=== PATIENT | female | born 1960 | race Caucasian/White ===

== ENCOUNTER 2019-03-29 08:52 | Inpatient (IN) | payer BC ==
[2019-03-29 08:57] LABS: O2 DELIVERY DEVICE ROOM AIR
[2019-03-29 09:10] LABS: BICARBONATE,ARTERIAL 23.7 mm/L (22.0-26.0); O2 SATURATION ARTERIAL 91 % (95-98); PCO2 ARTERIAL 23 mm/Hg0 (35-45); PO2 ARTERIAL 47 mm/Hg (80-100)
[2019-03-29] MEDS ORDERED: Albuterol/Ipratropium 3.0-0.5 MG/3 ML Neb Soln INH ONE (09:15)
[2019-03-29 09:17] LABS: CHLORIDE,CL 98 mEq/L (98-106); SODIUM,NA 135 mEq/L (136-145)
[2019-03-29] MEDS ORDERED: Albuterol/Ipratropium 3.0-0.5 MG/3 ML Neb Soln ONE (09:18)
[2019-03-29] MEDS ORDERED: Sodium Chloride 0.9% 10 ML Syringe FLUSH PRN (10:03)
[2019-03-29] MEDS ORDERED: Acetaminophen 325 MG Tab PO PRN (10:03)
[2019-03-29] MEDS ORDERED: Potassium Chloride Riders 40 MEQ in Premix Bag 1 BAG IV ONE (10:09)
[2019-03-29] MEDS ORDERED: Budesonide 0.5 MG/2 ML Neb Susp NEB PRN (10:10)
[2019-03-29] MEDS ORDERED: Non-Formulary Medication 1 Each (Losartan/Hydrochlorothiazide [Hyzaar 100-12.5 Tablet] 1 E PO SCH (10:15)
[2019-03-29] MEDS ORDERED: Non-Formulary Medication 1 Each (Budesonide/Formoterol [Symbicort 80-4.5 Mcg] 2 PUFF) PO SCH (10:15)
[2019-03-29] MEDS: amLODIPine 2.5 MG Tab PO SCH ×2 (10:55→11:11)
[2019-03-29] MEDS: Losartan 100 MG Tab PO SCH ×2 (10:56→11:10)
[2019-03-29] MEDS: Hydrochlorothiazide 12.5 MG Cap PO SCH ×2 (10:56→11:10)
[2019-03-29] MEDS: Oseltamivir 75 MG Cap PO SCH ×2 (10:56→19:43)
[2019-03-29] MEDS: methylPREDNISolone Sodium Succinate 125 MG/2 ML SDV IVPUSH SCH ×2 (10:57→23:49)
[2019-03-29] MEDS: Citalopram 10 MG Tab PO SCH (10:59)
[2019-03-29] MEDS: Pantoprazole 40 MG Vial IVPUSH SCH ×2 (11:01→23:49)
[2019-03-29] MEDS: Formoterol/Mometasone 100-5 MCG 8.8 GM Inhaler IH SCH ×2 (11:02→19:43)
[2019-03-29] MEDS: Enoxaparin 40 MG/0.4 ML Syringe SUBCUT SCH (11:10)
[2019-03-29] MEDS: Albuterol/Ipratropium 3.0-0.5 MG/3 ML Neb Soln NEB SCH ×3 (11:13→19:43)
[2019-03-29] MEDS ORDERED: Lidocaine 1% 20 ML MDV ONE (12:51)
[2019-03-29] MEDS ORDERED: Lidocaine 1% 30 ML SDV INJECT SCH (15:45)
[2019-03-29] MEDS ORDERED: Montelukast 10 MG Tab PO SCH (20:00)
[2019-03-30 07:23] LABS: CHLORIDE,CL 102 mEq/L (98-106); SODIUM,NA 139 mEq/L (136-145)
[2019-03-30] MEDS: Citalopram 10 MG Tab PO SCH (08:29)
[2019-03-30] MEDS: Albuterol/Ipratropium 3.0-0.5 MG/3 ML Neb Soln NEB SCH ×2 (08:29→12:48)
[2019-03-30] MEDS: Hydrochlorothiazide 12.5 MG Cap PO SCH (08:30)
[2019-03-30] MEDS: amLODIPine 2.5 MG Tab PO SCH (08:30)
[2019-03-30] MEDS: Oseltamivir 75 MG Cap PO SCH (08:30)
[2019-03-30] MEDS: Losartan 100 MG Tab PO SCH (08:30)
[2019-03-30] MEDS: Formoterol/Mometasone 100-5 MCG 8.8 GM Inhaler IH SCH (08:33)
[2019-03-30] MEDS: Pantoprazole 40 MG Vial IVPUSH SCH (10:03)
[2019-03-30] MEDS: methylPREDNISolone Sodium Succinate 125 MG/2 ML SDV IVPUSH SCH (10:03)
[2019-03-30] MEDS: Enoxaparin 40 MG/0.4 ML Syringe SUBCUT SCH (10:04)
[2019-03-30 12:58] VITALS: BP 155/66; PULSE 90
--- NOTE | 2019-03-30 14:34 | PCM.DCSUM1 ---
Discharge Summary - Hospital Course Free Text/Narrative:: Rose Marie is a 58 year old who presented to clinic in follow up for persisting cough, malaise and shortness of breath. Was seen earlier in the week, started on a tapering dose of prednisone and nebs. [place] like unable to get in air "windpipe feels like a straw". Has history of asthma as well. Did not feel nebs were helping and "felt panicky". On presentation to clinic, oxygen sat 91 % on room air. Influenza A positive. Potassium low at 2.3, magnesium 1.4. CRP 1.9, WBC 10.3. ADmitted and started on Tamiflu. Replacement of potassium and magnesium. Start IV fluids and steroids. Diagnosis: Stroke: No Modified Marleni Scale: No Symptoms at All Modified Hondo Scale Score: 0 - Discharge Data Discharge Date: 03/30/19 Discharge Disposition: Home, Self-Care 01 Condition: Fair - Referral to Home Health Primary Care Physician: Kaylene Cano PA-C - Discharge Diagnosis/Problem(s) (1) Influenza A SNOMED Code(s): 303104151 ICD Code: J10.1 - FLU DUE TO OTH IDENT INFLUENZA VIRUS W OTH RESP MANIFEST Status: Acute Priority: High (2) Asthma exacerbation SNOMED Code(s): 202513980 ICD Code: J45.901 - UNSPECIFIED ASTHMA WITH (ACUTE) EXACERBATION Status: Acute Priority: High Qualifiers: Asthma severity: mild Asthma persistence: persistent Qualified Code(s): J45.31 - Mild persistent asthma with (acute) exacerbation - Patient Summary/Data Complications: none Hospital Course: Patient doing well today. Does still feel short of breath and has hacky cough but improved from yesterday. Admits that finally got a night of sleep last night and has overall malaise. Sats are stable at 93% on room air. Remains afebrile. Potassium improved to 3.3 today. Magnesium now 2.2. Is ambulating and tolerating well today. Eating well. Will discharge home on tamiflu. Prednisone 40 mg daily for 5 days. Follow up with Kaylene in one week. - Patient Instructions Diet: Usual Diet as Tolerated Activity: As Tolerated - Discharge Plan *PRESCRIPTION DRUG MONITORING PROGRAM REVIEWED*: No *COPY OF PRESCRIPTION DRUG MONITORING REPORT IN PATIENT LALIT: No Prescriptions/Med Rec: Albuterol/Ipratropium [DuoNeb 3.0-0.5 MG/3 ML] 3 ml NEB QIDRT #1 box Oseltamivir [Tamiflu] 75 mg PO BID #8 cap predniSONE [Prednisone] 20 mg PO DAILY #8 tablet Home Medications: Home Meds Albuterol Sulfate [Proair Hfa] 2 puff PO TID PRN 12/02/14 [History] Budesonide [Pulmicort] 1 dose NEB BID PRN 12/02/14 [History] Budesonide/Formoterol [Symbicort 80-4.5 MCG] 2 puff PO BID 12/02/14 [History] Citalopram Hydrobromide [Celexa] 40 mg PO DAILY 12/02/14 [History] Losartan/Hydrochlorothiazide [Hyzaar 100-12.5 Tablet] 1 each PO DAILY 01/24/18 [ History] Montelukast [Singulair] 10 mg PO BEDTIME 01/24/18 [History] Omeprazole 20 mg PO DAILY 01/24/18 [History] amLODIPine Besylate [Amlodipine Besylate] 5 mg PO DAILY 01/24/18 [History] Albuterol/Ipratropium [DuoNeb 3.0-0.5 MG/3 ML] 3 ml NEB QIDRT #1 box 03/30/19 [ Rx] Oseltamivir [Tamiflu] 75 mg PO BID #8 cap 03/30/19 [Rx] predniSONE [Prednisone] 20 mg PO DAILY #8 tablet 03/30/19 [Rx] Referrals: Kaylene Cano PA-C [Primary Care Provider] - (Follow up with Kaylene Cano in one week) - Discharge Summary/Plan Comment DC Time >30 min.: No - General Info Date of Service: 03/30/19 Admission Dx/Problem (Free Text: Influenza A Asthma Exacerbation Functional Status: Reports: Pain Controlled, Tolerating Diet, Ambulating - Review of Systems General: Reports: Weakness, Fatigue, Malaise HEENT: Reports: Headaches, Sinus Congestion. Denies: Sore Throat Pulmonary: Reports: Shortness of Breath, Cough Cardiovascular: Denies: Chest Pain, Edema, Lightheadedness Gastrointestinal: Denies: Abdominal Pain, Nausea, Vomiting Genitourinary: Reports: No Symptoms Musculoskeletal: Reports: No Symptoms Skin: Reports: No Symptoms Neurological: Reports: No Symptoms - Patient Data Vitals - Most Recent: Last Vital Signs Temp 98.5 F 03/30/19 12:00 Pulse 90 03/30/19 12:00 Resp 18 03/30/19 12:00 BP 155/66 H 03/30/19 12:00 Pulse Ox 95 03/30/19 12:00 Weight - Most Recent: 150 lb I&O - Last 24 hours: Intake & Output 03/29/19 03/30/19 03/30/19 22:59 06:59 14:59 Intake Total 560 Output Total 900 Balance -340 Lab Results - Last 24 hrs: Laboratory Results - last 24 hr 03/30/19 03/30/19 Range/Units 06:55 06:55 WBC 12.2 H (5.0-10.0) 10^3/uL RBC 4.31 (4.00-5.50) 10^6/uL Hgb 12.4 (12.0-16.0) g/dL Hct 37.6 (37.0-47.0) % MCV 87.2 (82.0-94.0) fL MCH 28.8 (27.0-32.0) pg MCHC 33.0 (33.0-38.0) g/dL RDW Coeff of Kenyatta 12.5 (11.0-15.0) % Plt Count 213 (150-400) 10^3/uL Add Manual Diff Yes Neutrophils % (Manual) 95 H (35-85) % Band Neutrophils % 1 (0-5) % Lymphocytes % (Manual) 3 L (21-55) % Monocytes % (Manual) 1 L (2-12) % Absolute Neutrophils 11.71 H (1.80-7.00) 10^3/uL Lymphocytes # (Manual) 0.37 L (1.00-4.80) 10^3/uL Monocytes # (Manual) 0.12 (0.00-0.80) 10^3/uL Toxic Granulation 1+ slight H (NOT SEEN) Sodium 139 (136-145) mEq/L Potassium 3.3 L D (3.5-5.0) mEq/L Chloride 102 (98-106) mEq/L Carbon Dioxide 29 (21-32) mmol/L BUN 15 (7-18) mg/dL Creatinine 0.8 (0.6-1.0) mg/dL Est Cr Clr Drug Dosing 70.88 mL/min Estimated GFR (MDRD) > 60 (>=60) mL/min Glucose 155 H D (75-99) mg/dL Calcium 8.6 (8.4-10.1) mg/dL Magnesium 2.2 (1.8-2.4) mg/dL LUIZ Results - Last 24 hrs: Microbiology 03/29/19 08:56 Influenza Type A Antigen Screen - Final Nasopharyngeal Swab Positive Influenza A Ag Influenza Type B Antigen Screen - Final NEGATIVE INFLUENZA B VIRUS AG REFERENCE RANGE: NEGATIVE Med Orders - Current: Current Medications Acetaminophen (Tylenol) 650 mg PO Q4H PRN PRN Reason: Pain (Mild 1-3)/fever Last Admin: 03/30/19 08:46 Dose: 650 mg Albuterol/Ipratropium (Duoneb 3.0-0.5 Mg/3 Ml) 3 ml NEB QIDRT [facility] Last Admin: 03/30/19 12:48 Dose: 3 ml Amlodipine Besylate (Norvasc) 5 mg PO DAILY [facility] Last Admin: 03/30/19 08:30 Dose: 5 mg Budesonide (Pulmicort) 0.5 mg NEB BIDRT PRN PRN Reason: Shortness of Breath Citalopram Hydrobromide (Celexa) 40 mg PO DAILY [facility] Last Admin: 03/30/19 08:29 Dose: 40 mg Enoxaparin Sodium (Lovenox) 40 mg SUBCUT Q24H [facility] Last Admin: 03/30/19 10:04 Dose: 40 mg Hydrochlorothiazide (Hydrochlorothiazide) 12.5 mg PO DAILY [facility] Last Admin: 03/30/19 08:30 Dose: 12.5 mg Losartan Potassium (Cozaar) 100 mg PO DAILY [facility] Last Admin: 03/30/19 08:30 Dose: 100 mg Methylprednisolone Sodium Succinate (Solu-Medrol) 62.5 mg IVPUSH Q12H [facility] Last Admin: 03/30/19 10:03 Dose: 62.5 mg Mometasone Furoate/Formoterol Fumar (Dulera 100-5 Mcg) 2 puff IH BID [facility] Last Admin: 03/30/19 08:33 Dose: Not Given Montelukast Sodium (Singulair) 10 mg PO BEDTIME [facility] Last Admin: 03/29/19 19:43 Dose: 10 mg Oseltamivir Phosphate (Tamiflu) 75 mg PO BID [facility] Last Admin: 03/30/19 08:30 Dose: 75 mg Pantoprazole Sodium (Protonix Iv) 40 mg IVPUSH Q12H [facility] Last Admin: 03/30/19 10:03 Dose: 40 mg Sodium Chloride (Saline Flush) 10 ml FLUSH ASDIRECTED PRN PRN Reason: Keep Vein Open Discontinued Medications Albuterol/Ipratropium (Duoneb 3.0-0.5 Mg/3 Ml) Confirm Administered Dose 3 ml .ROUTE .STK-MED ONE Stop: 03/29/19 09:19 Last Admin: 03/29/19 09:19 Dose: Not Given Albuterol/Ipratropium (Duoneb 3.0-0.5 Mg/3 Ml) 3 ml INH ONETIME ONE Stop: 03/29/19 09:16 Last Admin: 03/29/19 09:19 Dose: 3 ml Potassium Chloride 40 meq/ (Premix) 100 mls @ 25 mls/hr IV ONETIME ONE Stop: 03/29/19 14:08 Last Admin: 03/29/19 12:35 Dose: 25 mls/hr Magnesium Sulfate/Dextrose 1 (gm/ Premix) 100 mls @ 100 mls/hr IV Q1H [facility] Stop: 03/29/19 12:59 Last Admin: 03/29/19 11:53 Dose: 100 mls/hr Lidocaine HCl (Xylocaine 1%) Confirm Administered Dose 20 ml .ROUTE .STK-MED ONE Stop: 03/29/19 12:52 Last Admin: 03/29/19 12:35 Dose: Not Given Lidocaine HCl (Xylocaine-Mpf 1%) 1 ml INJECT ASDIRECTED [facility] Stop: 03/29/19 17:00 Last Admin: 03/29/19 12:35 Dose: 1 ml Non-Formulary Medication (Budesonide/Formoterol [Symbicort 80-4.5 Mcg]) 2 puff PO BID [facility] Last Admin: 03/29/19 13:49 Dose: Not Given Non-Formulary Medication (Losartan/Hydrochlorothiazide [Hyzaar 100-12.5 Tablet] ) 1 each PO DAILY [facility] Last Admin: 03/29/19 13:49 Dose: Not Given - Exam General: Reports: Alert, Oriented HEENT: Reports: Mucous Membr. Moist/[place] Neck: Reports: Supple Lungs: Reports: Decreased Breath Sounds Cardiovascular: Reports: Regular Rate, Regular Rhythm GI/Abdominal Exam: Normal Bowel Sounds, Soft, Non-Tender Extremities: Normal Inspection, No Pedal Edema Skin: Reports: Warm, Dry Neurological: Reports: No New Focal Deficit
== END 2019-03-30 15:30 | disposition home or self-care (01) | DRG 141 ==
LOC: CC.MS 08:52 → CC.FCMC 08:52 → CC.MS 09:20 → UNDOADMIN 09:20 → CC.MS 10:03
PROVIDERS: ADMIT Physician Assistant Medical; ATTEND Family Medicine
DX: J45.31 Mild persistent asthma with (acute) exacerbation (principal); R06.03 Acute respiratory distress; F32.9 Major depressive disorder, single episode, unspecified; J10.1 Influenza due to other identified influenza virus with other respiratory manifestations; E87.6 Hypokalemia; E83.42 Hypomagnesemia; Z98.890 Other specified postprocedural states; Z88.0 Allergy status to penicillin; Z88.1 Allergy status to other antibiotic agents; Z79.51 Long term (current) use of inhaled steroids; Z79.899 Other long term (current) drug therapy
CPT/HCPCS: 36415; 36600; 71046; 80048; 82803; 83735; 85025; 86140; 87804; 94640; A9270-GY; C9113; J1650; J2001; J2930; J3475; J3480; J7620-GY

== ENCOUNTER → 2021-10-29 | Day surgery (SDC) | payer BC ==
[~2021-10-29] MED LIST: Lactated Ringers 1,000 ML IV SCH; Lidocaine 1% with EPINEPHrine 1:100,000 20 ML MDV INJECT ONE; Lidocaine 2% 20 ML MDV ONE; Midazolam 1 MG/ML 2 ML SDV ONE; Ondansetron 4 MG/2 ML SDV ONE; Propofol 200 MG/20 ML SDV ONE; fentaNYL 50 MCG/ML SDV ONE
[2021-10-29 12:00] VITALS: BP 131/55; PULSE 77
== END ==
LOC: CC.SDS 09:11
PROVIDERS: ATTEND Surgery
DX: L82.1 Other seborrheic keratosis (principal); F41.9 Anxiety disorder, unspecified; J45.909 Unspecified asthma, uncomplicated; K21.9 Gastro-esophageal reflux disease without esophagitis; I10 Essential (primary) hypertension; E78.5 Hyperlipidemia, unspecified; M85.80 Other specified disorders of bone density and structure, unspecified site; Z88.0 Allergy status to penicillin; Z79.899 Other long term (current) drug therapy; Z98.890 Other specified postprocedural states; Z88.8 Allergy status to other drugs, medicaments and biological substances
CPT/HCPCS: 00300; J2250; J2405; J2704; J3010; J7120